=== PATIENT | male | born 1995 | race Two or more races ===

== ENCOUNTER 2021-09-11 03:29 | Emergency (ER) | payer SELFPAY ==
[~2021-09-11] VITALS: Ht 177.8 cm; Wt 91.0 kg
[2021-09-11 03:55] VITALS: BP 137/91
== END 2021-09-11 06:53 | disposition left against medical advice (07) ==
LOC: ER 03:29
DX: Z53.21 Procedure and treatment not carried out due to patient leaving prior to being seen by health care provider (principal); R07.9 Chest pain, unspecified
CPT/HCPCS: 71045; 93005; 99283